=== PATIENT | male | born 1930 | race Caucasian/White ===

== ENCOUNTER → 2021-03-04 | Outpatient (CLI) | payer MEDICARE, OTHER ==
[~2021-03-04] MED LIST: AMLODIPINE-BEN1 EAC1 PO; ASPIRIN325 MG PO; CALCIUM-MAGNES1 EAC4 PO; FIBER CON PO; GARLIC100 MG PO; LOVASTATIN40 MG PO; OMEPRAZOLE20 M1 PO; PROSCAR5 MG PO; TYLENOL 8 HOUR650 MG PO; VITAMIN C500 M4 PO; VITAMIN D2 PO
[2021-03-04 13:17] LABS: HEMOGLOBIN 12.9 gm/dl (14.0-17.5); RED BLOOD COUNT 4.35 M/UL (4.20-5.50); WHITE BLOOD COUNT 9.8 K/UL (4.5-11.0)
[2021-03-04 13:33] LABS: BUN/CREATININE RATIO 21 (0-10)
== END ==
LOC: OPSV2 11:00 → EDSTATUS 11:00 → OPSV2 11:09
PROVIDERS: Orthopaedic Surgery
DX: Z01.818 Encounter for other preprocedural examination (principal); M16.11 Unilateral primary osteoarthritis, right hip
CPT/HCPCS: 36415; 80048; 85025; 87081; 93005

== ENCOUNTER → 2021-03-05 | Outpatient (CLI) | payer MEDICARE, OTHER | LOC: LAB 12:18 | DX: Z01.812 Encounter for preprocedural laboratory examination (principal); M16.11 Unilateral primary osteoarthritis, right hip | CPT/HCPCS: 36415; 81001; 87086 ==

== ENCOUNTER → 2021-04-02 | Outpatient (CLI) | payer MEDICARE, OTHER ==
[2021-04-02 12:12] LABS: HEMOGLOBIN 11.2 gm/dl (14.0-17.5); RED BLOOD COUNT 3.84 M/UL (4.20-5.50); WHITE BLOOD COUNT 8.1 K/UL (4.5-11.0)
[2021-04-02 12:55] LABS: BUN/CREATININE RATIO 12 (0-10)
== END ==
LOC: OPSV2 11:00 → EDSTATUS 11:00 → OPSV2 11:04
PROVIDERS: Orthopaedic Surgery
DX: Z01.818 Encounter for other preprocedural examination (principal); M16.11 Unilateral primary osteoarthritis, right hip
CPT/HCPCS: 80048; 85025; 93005

== ENCOUNTER 2021-04-10 05:02 | Day surgery (SDC) | payer MEDICARE, OTHER ==
[~2021-04-10] VITALS: Ht 170.2 cm; Wt 75.3 kg
[~2021-04-10 05:02] MED LIST changes: +ADULT LOW DOSE81 MG PO; -ASPIRIN325 MG PO; -FIBER CON PO; +FIBER500 MG PO; -GARLIC100 MG PO; +GARLIC1000 MG PO
[2021-04-10] MEDS ORDERED: CIPRO500 MG PO (06:17)
[2021-04-10 06:59] LABS: BUN/CREATININE RATIO 12 (0-10)
[2021-04-10] MEDS ORDERED: ULTRAM50 MG PO (10:16)
[2021-04-11 06:48] LABS: HEMOGLOBIN 8.5 gm/dl (14.0-17.5); RED BLOOD COUNT 2.95 M/UL (4.20-5.50); WHITE BLOOD COUNT 11.1 K/UL (4.5-11.0)
[2021-04-11 07:22] LABS: BUN/CREATININE RATIO 16 (0-10)
[2021-04-11] MEDS ORDERED: ELIQUIS 2.5 MG2.5 MG PO (10:47)
== END 2021-04-11 11:31 | disposition home or self-care (01) ==
LOC: OR 05:02 → M/S 05:02 → OR 07:45 → EDSTATUS 13:30 → M/S 13:39 → OR 04-11 11:31
PROVIDERS: Orthopaedic Surgery
DX: M16.11 Unilateral primary osteoarthritis, right hip (principal); G89.29 Other chronic pain; I10 Essential (primary) hypertension; E78.5 Hyperlipidemia, unspecified; K21.9 Gastro-esophageal reflux disease without esophagitis; N40.0 Benign prostatic hyperplasia without lower urinary tract symptoms; Z79.899 Other long term (current) drug therapy; Z20.822 Contact with and (suspected) exposure to COVID-19
CPT/HCPCS: 36415; 72170; 73502; 76000; 80048; 85025; 86850; 86900; 86901; 97116-GP-CQ; 97161; 97166; 97535; C1776; J0690; J1100; J2001; J2270; J2704; J2795; J3370; J7050; J7120